=== PATIENT | male | born 1960 | race Caucasian/White ===

== ENCOUNTER → 2021-08-11 08:24 | Outpatient (CLI) | payer OTHER, SELFPAY ==
--- NOTE | ~2021-08-11 | MR_ITS ---
EXAMINATION: MR knee RT wo con DATE: 08/11/2021 09:26 INDICATION: Primary osteoarthritis of the right knee with generalized right knee pain, swelling, limi kassidy range of motion, weakness, locking and popping. TECHNIQUE: Magnetic resonance imaging (MRI) of the right knee was performed without intravenous contr ast. Sequences included coronal PD-weighted FSE, coronal PD-weighted FS FSE, sagittal T2-weighted FS E, sagittal PD-weighted FS FSE and axial PD weighted fat saturated FSE. COMPARISON: None. FINDINGS: Medial compartment: Complex tear of the body and posterior horn of the medial meniscus. The medial meniscus appears small likely due to displacement of a meniscal flap which can be seen extending inferiorly into the medial gutter from the posterior meniscal body. Extensive deep chondral ulceration along the anterior to ce ntral weightbearing medial femoral condyle with minimal underlying cortical irregularity and mild sca ttered subarticular edema. Less severe partial thickness cartilage loss which only smooth chondral rabago rface along the medial tibial plateau. Small region of mild subarticular edema along the anteromedial rim of the medial tibial plateau which could be due to overlying chondromalacia or more likely alter ed stress distribution resulting from the meniscal tear. Lateral compartment: Lateral meniscus is normal. Articular cartilage is normal aside from small region of subtle chondral signal heterogeneity suggesting partial thickness fissuring at the posterior aspect of the lateral ti bial plateau underlying the posterior horn of the lateral meniscus. Patellofemoral compartment: There is extensive patellar chondral ulceration and fissuring most prominent along the apical ridge a nd immediately adjacent medial and lateral facets where it likely reaches full-thickness with underly ing cortical irregularity and mild subarticular edema. Trochlear cartilage is relatively preserved. Ligaments and tendons: Anterior and posterior cruciate ligaments are normal. There is thickening and mild increased intrasub stance signal of the proximal medial collateral ligament without significant surrounding edema consis tent with scarring related to chronic partial tear. The fibular collateral ligament complex is normal . Mild patellar and distal quadriceps tendinopathy without discrete tear. The visualized medial and l ateral hamstring tendons as well as the iliotibial band are normal. Fluid: Small right knee joint effusion. No loose osteochondral bodies identified. Moderate-sized Griffin's cys t which measures 6.6 cm craniocaudally and up to 3.9 x 2.1 cm in maximal transaxial dimensions. There is additional smaller ganglion cysts at the margins of the proximal tibiofibular articulation, the l argest measuring 3.5 similar craniocaudally and measuring up to 9 x 7 mm in maximal transaxial dimens ions. Osseous/other: Aside from the previous noted degenerative subarticular changes there is normal marrow signal through out. No fracture or pathologic marrow replacing process. IMPRESSION: 1. Complex medial meniscal tear including a displaced meniscal flap. 2. Mild tricompartmental osteoarthritis most prominent in the medial patellofemoral compartments wher e there is extensive moderate to high-grade chondromalacia at the patella and weightbearing medial fe moral condyle. 3. Likely chronic partial tear of the medial collateral ligament. 4. Mild patellar and quadriceps tendinopathy. 5. Small right knee joint effusion with moderate to large Griffin's cyst and smaller ganglion cysts at the margins of the proximal tibiofibular articulation. Reviewed, dictated and finalized at location A.
== END ==
PROVIDERS: PCP Internal Medicine
DX: M17.11 Unilateral primary osteoarthritis, right knee (principal); S83.231A Complex tear of medial meniscus, current injury, right knee, initial encounter; M22.41 Chondromalacia patellae, right knee; S83.411A Sprain of medial collateral ligament of right knee, initial encounter; M76.51 Patellar tendinitis, right knee; M25.461 Effusion, right knee; M71.21 Synovial cyst of popliteal space [Baker], right knee
CPT/HCPCS: 73721

== ENCOUNTER 2021-11-27 10:46 | Outpatient (CLI) | payer OTHER, SELFPAY ==
--- NOTE | ~2021-11-27 | US_ITS ---
EXAMINATION: US venous doppler LE EXAM DATE: 11/27/2021 11:24 INDICATION: Right leg pain. TECHNIQUE: Multiple grayscale, color flow and Doppler images of the right lower extremity deep venous system obtained and reviewed. There is no prior right leg study for comparison. FINDINGS: RIGHT SIDE Common femoral: -------- Normal. Profunda femoral: ------- Normal. Femoral: Normal. Popliteal: Thrombosed. Posterior tibial: ---------Thrombosed. Peroneal: Normal. Gastrocnemius: Not visualized. Soleus: Not visualized. Greater saphenous: ----- Normal. Lesser saphenous: ------ Not visualized. IMPRESSION: 1. Positive for right popliteal, posterior tibial DVT. STAT hold and call. I confirmed with Maura that patient is in waiting room. She is notifying order ing doctor of results and patient will be given instructions at that time. Reviewed, dictated and finalized at location A. PER MAKER IMPRESSION: 1. Positive for right popliteal, posterior tibial DVT. STAT hold and call. I confirmed with Maura that patient is in waiting room. She is notifying ordering doctor of results and patient will be given instructi ons at that time.
== END 2021-11-27 10:47 | disposition home or self-care (01) ==
LOC: ANHIMG 10:50
PROVIDERS: PCP Internal Medicine; Visit Provider Nurse Practitioner
DX: I82.431 Acute embolism and thrombosis of right popliteal vein (principal); I82.441 Acute embolism and thrombosis of right tibial vein; R60.9 Edema, unspecified
CPT/HCPCS: 93971

== ENCOUNTER 2022-10-21 00:52 | Day surgery (SDC) | payer OTHER, SELFPAY ==
[2022-10-06 15:06] VITALS: BMI 30.7
--- NOTE | 2022-10-20 15:37 | PM.HPGS ---
History of Present Illness History of Present Illness Consent: Risks, benefits, and alternatives have been discussed and questions answered. Patient agrees to proceed with procedure. Chief complaint: melena Narrative: Alejandro Ramos is a 62 year old male Who was referred for colon cancer screening. His father had colon cancer. His last colonoscopy was 5 years ago. Review of Systems Review of Systems: All systems reviewed & are unremarkable except as noted in HPI and below PMFSH Past Medical History Medical History Anxiety Chicken pox DVT (deep venous thrombosis) Heterozygous factor V Leiden mutation Hyperbilirubinemia Hyperlipidemia Sleep apnea Surgical History Surgical History H/O right knee surgery (~09/04/21) History of hernia repair Family History Family History Father , 08/2018 Diabetes mellitus Mother , 11/2018 Diabetes mellitus Social History Social History Social History: caffeine-coffee/tea 2-3 cups daily Years smoked: 10 Smoking status: Former smoker Tobacco type: cigarettes Smoking end date: 11/29/80 Alcohol intake: current Drinks per week: 5 Alcohol use details: wine, margaritas 1-2 weekly Substance use type: does not use Living arrangements: with family Spiritual care concerns: No Meds Home Medications and Allergies Home Medications Medication Instructions Recorded Confirmed Type multivitamin 1 tablet PO DAILY 12/07/19 10/12/22 History mppsfkyoroe-tvr-pbaemkyms-hrb 1 tablet PO DAILY 06/17/21 10/12/22 History 149-hyalur 500 mg-500 mg-66.7 mg tablet (Txnzvihmesg-Unupfcirxlp-TEA (with antiox)) diclofenac sodium 1 % topical gel 2 g topical QID 10/06/22 10/12/22 History (Voltaren Arthritis Pain) Allergies Allergy/AdvReac Type Severity Reaction Status Date / Time No Known Allergies Allergy Verified 10/21/22 12:02 Exam Const: General: alert Orientation/consciousness: patient oriented x3 Resp: Auscultation: clear to auscultation bilaterally Cardio: Rhythm: regular rhythm GI: GI Palp: Yes Soft to palpation and No Tenderness to palpation present (GI) Neuro: General: patient oriented x3 Assessment and Plan Assessment and plan (1) Colon cancer screening: Code(s): Z12.11 - Encounter for screening for malignant neoplasm of colon Status: Acute Assessment and Plan: Colonoscopy with possible biopsy or polypectomy or cautery or injection of substances.
[2022-10-21 12:04] VITALS: BP 133/86; PULSE 68; RESP 18; TEMP 36.2; O2SAT 99
[2022-10-21] MEDS: LACTATED RINGERS 1,000 ML 150 ML IV CONT (12:15)
--- NOTE | 2022-10-21 12:36 | P.PNAN_ITS ---
Anes - Initial Pre Proc Eval Procedure: Operation Date: 10/21/22 14:00 Proposed Procedures p Colonoscopy - Marcelino Guillaume MD Date/Time: 10/21/22 12:36 Surgeon: Marcelino Guillaume MD Pre Op Diagnosis: melena Patient Data Age: 62 Gender: M Height: 1.8 m Weight: 98 kg Last Vital Signs Temp 36.2 C L 10/21/22 12:04 Pulse 68 10/21/22 12:04 Resp 18 10/21/22 12:04 BP 133/86 10/21/22 12:04 Pulse Ox 99 10/21/22 12:04 O2 Del Method Room Air 10/21/22 12:04 Allergies Allergy/AdvReac Type Severity Reaction Status Date / Time No Known Allergies Allergy Verified 10/21/22 12:02 Home Medications Medication Instructions Recorded Confirmed Type multivitamin 1 tablet PO DAILY 12/07/19 10/12/22 History eocxkykkqpy-jsb-wpsbtlylk-hrb 1 tablet PO DAILY 06/17/21 10/12/22 History 149-hyalur 500 mg-500 mg-66.7 mg tablet (Nbqvwrwoexb-Dqsukejdzqj-KWF (with antiox)) diclofenac sodium 1 % topical gel 2 g topical QID 10/06/22 10/12/22 History (Voltaren Arthritis Pain) Patient hx anesthesia problems: none Family hx anesthesia problems: none Results Review: All pre-operative results and documents have been reviewed as part of the pre- operative evaluation. [facility] Past Medical History Medical History Anxiety Chicken pox DVT (deep venous thrombosis) Heterozygous factor V Leiden mutation Hyperbilirubinemia Hyperlipidemia Sleep apnea Surgical History Surgical History H/O right knee surgery (~09/04/21) History of hernia repair Family History Family History Father , 08/2018 Diabetes mellitus Mother , 11/2018 Diabetes mellitus Social History Social History Social History: caffeine-coffee/tea 2-3 cups daily Years smoked: 10 Smoking status: Former smoker Tobacco type: cigarettes Smoking end date: 11/29/80 Alcohol intake: current Drinks per week: 5 Alcohol use details: wine, margaritas 1-2 weekly Substance use type: does not use Living arrangements: with family Spiritual care concerns: No Anes - Eval Final PreProcedure Day of Procedure 10/21/22 12:36 Patient weight: obese Heart: regular rate and rhythm Lungs: clear to auscultation and normal air movement Airway: Mallampati scale class II Neurological: alert and oriented Last oral intake: >/= 8 hours ASA classification: III Emergent: no Anesthetic plan: proceed Anesthesia type and monitoring: general GIVS Results Review: All pre-operative results and documents have been reviewed as part of the pre- operative evaluation. Informed Consent: The patient's anesthetic plan and its attendant risks and benefits were discussed with the patient/family/POA. Questions were solicited and answers provided to the satisfaction of the patient/family/POA.
[2022-10-21 13:22] VITALS: BP 88/52; PULSE 65; RESP 20; O2SAT 97
[2022-10-21 13:32] VITALS: BP 104/71; PULSE 54; RESP 20; O2SAT 96
[2022-10-21 13:42] VITALS: BP 111/71; PULSE 50; RESP 20; O2SAT 97
== END 2022-10-21 13:54 | disposition home or self-care (01) ==
PROVIDERS: PCP Internal Medicine; Visit Provider Internal Medicine Gastroenterology
PROC: 0DJD8ZZ Inspection of Lower Intestinal Tract, Via Natural or Artificial Opening Endoscopic (ICD-10-PCS; CPT 45378; principal; 2022-10-21 14:00)
DX: Z12.11 Encounter for screening for malignant neoplasm of colon (principal); K57.30 Diverticulosis of large intestine without perforation or abscess without bleeding; D12.8 Benign neoplasm of rectum; K63.5 Polyp of colon; Z80.0 Family history of malignant neoplasm of digestive organs; G47.30 Sleep apnea, unspecified; D68.51 Activated protein C resistance; Z87.891 Personal history of nicotine dependence; E66.9 Obesity, unspecified; Z68.30 Body mass index [BMI] 30.0-30.9, adult
CPT/HCPCS: 45385; 88305; J2704; J7120

== ENCOUNTER 2023-02-05 11:49 | Emergency (ER) | payer OTHER, SELFPAY ==
[2023-02-05] VITALS (19 sets, daily range): BP systolic 126–138; BP diastolic 88–98; PULSE 66–94; RESP 13–23; TEMP 36.4–36.6; O2SAT 92–97
--- NOTE | ~2023-02-05 | US_ITS ---
EXAMINATION: US venous doppler [facility] DATE: 02/05/2023 12:35 INDICATION: Left lower limb pain. TECHNIQUE: Grayscale ultrasound images without and with compression and Doppler ultrasound images of the left lower extremity veins were obtained. COMPARISON: Ultrasound 01/20/2016 FINDINGS: The visualized portions of left common femoral vein, profunda (deep) femoral vein, femoral vein, popl iteal vein, peroneal veins, and greater saphenous vein outflow are patent. There is thrombus in the l eft posterior tibial veins. IMPRESSION: 1. Deep vein thrombosis involving the left posterior tibial veins. I called this result to Dr. Derek humphries. Reviewed, dictated and finalized at location A. R INSPECTOR IMPRESSION: 1. Deep vein thrombosis involving the left posterior tibial veins. I called th is result to Dr. Gill.
--- NOTE | 2023-02-05 13:38 | ED.GENADULT ---
HPI - General Adult General Chief complaint: Extremity Problem,Nontraumatic Stated complaint: left leg pain/past hx dvt Time Seen by Provider: 02/05/23 12:43 History of Present Illness HPI narrative: 63-year-old male presented the emergency department for evaluation of left leg pain. Patient reports he does have a prior history of DVT and has right leg approximately 1-1/2 years ago after surgery. Patient states he did have a recent long plane flight and then on the 6 began developing some posterior right calf pain. Patient denies any significant chest pain or shortness of breath with this. Patient reports he does have prior follow-up with hematology at [facility]. Related Data Home Medications Medication Instructions Recorded Confirmed multivitamin 1 tablet PO DAILY 12/07/19 10/12/22 korwznyqett-mug-qlaikscns-hrb 1 tablet PO DAILY 06/17/21 10/12/22 149-hyalur 500 mg-500 mg-66.7 mg tablet (Rrtruorajbn-Wfvmedzfiif-ZFU (with antiox)) diclofenac sodium 1 % topical gel 2 g topical QID 10/06/22 10/12/22 (Voltaren Arthritis Pain) Allergies Allergy/AdvReac Type Severity Reaction Status Date / Time No Known Allergies Allergy Verified 02/05/23 12:44 Review of Systems Review of Systems: CONSTITUTIONAL: Denies fever, chills, or sweats. EYES: Denies visual changes, redness, or discharge. ENT: Denies rhinorrhea, congestion, sore throat, or otalgia. CARDIOVASCULAR: Denies chest pain, palpitations, or edema. RESPIRATORY: Denies cough or dyspnea. GASTROINTESTINAL: Denies abdominal pain, nausea, vomiting, or diarrhea. GENITOURINARY: Denies dysuria or hematuria. SKIN: Denies rash or itching. MUSCULOSKELETAL: See HPI NEUROLOGIC: Denies headache, numbness, or weakness. [facility] Past Medical History Medical History Anxiety Chicken pox DVT (deep venous thrombosis) Heterozygous factor V Leiden mutation Hyperbilirubinemia Hyperlipidemia Sleep apnea Surgical History Surgical History H/O right knee surgery (~09/04/21) History of hernia repair Family History Family History Father , 08/2018 Diabetes mellitus Mother , 11/2018 Diabetes mellitus Social History Social History Social History: caffeine-coffee/tea 2-3 cups daily Years smoked: 10 Smoking status: Former smoker Tobacco type: cigarettes Smoking end date: 11/29/80 Alcohol intake: current Drinks per week: 5 Alcohol use details: wine, margaritas 1-2 weekly Substance use type: does not use Living arrangements: with family Spiritual care concerns: No Exam Narrative: APPEARANCE: Well appearing, no pain, no distress, well-nourished. HEAD: normocephalic, atraumatic. EYES: PERRLA/EOMI, conjunctivae clear. NOSE: Normal no drainage NECK: Supple. No adenopathy, no masses. RESPIRATORY: Airway patent, respirations nonlabored. Clear to auscultation bilaterally, no rales, rhonchi, wheezing. CARDIOVASCULAR: Regular rate and rhythm without murmurs rubs or gallops. ABDOMINAL: Soft, nontender, nondistended, normal bowel sounds MUSCULOSKELETAL: Moves all extremities. Right calf tenderness to palpation. No significant edema. No erythema. Neurovascular intact. NEURO: Alert. Cranial nerves II through XII intact. Grossly intact SKIN: Warm, dry. Normal Color Course Course Emergency Course: 63-year-old male concern for DVT does have a positive popliteal DVT in the left lower extremity. Baseline labs are being ordered. Patient will be started on Eliquis as he tolerated this previously. Patient reports he does still have some Eliquis at home. Patient was provided a prescription for Eliquis. Patient was also provided with the coupon for Eliquis. Baseline labs show patient is afebrile with no leukocytosis. Patient's hemogl
[2023-02-05 13:50] LABS: Basophils Absolute Auto 0.1 K/mm3 (0.0-0.1); Basophils Percent Auto 0.9 % (0.2-1.2); Eosinophils Absolute Auto 0.1 K/mm3 (0-0.3); Hematocrit 48.3 % (42.0-52.0); Hemoglobin 16.2 g/dL (14.0-18.0); Immature Granulocyte Absolute 0.03 K/mm3 (0.00-0.031); Immature Granulocyte Percent A 0.3 % (0-0.5); Lymphocytes Percent Auto 16.7 % (18.3-44.2); Mean Corpuscular HGB Conc 33.5 g/dl (32-36); Mean Corpuscular Hemoglobin 31.2 pg (26-34); Mean Corpuscular Volume 93.1 fl (80-100); Mean Platelet Volume 9.8 fl (7.4-10.4); Monocytes Absolute Auto 0.8 K/mm3 (0.1-0.6); Monocytes Percent Auto 8.4 % (2.6-8.5); Neutrophils Absolute Auto 6.5 K/mm3 (1.3-6.7); Neutrophils Percent Auto 72.7 % (45.5-73.1); Platelet Count Result 219 k/mm3 (150-375); Red Blood Count 5.19 M/mm3 (4.6-6.20); Red Cell Distribution Width 12.9 % (11.5-14.5)
[2023-02-05 14:00] LABS: Prothrombin Time 12.9 Seconds (11.1-14.7)
[2023-02-05 14:01] LABS: Alanine Aminotransferase 25 U/L (6-50); Albumin Level 4.5 g/dL (3.5-5.1); Alkaline Phosphatase 78 U/L (38-126); Anion Gap 6 mmol/L (8-16); Aspartate Amino Transferase 24 U/L (17-59); Bilirubin,Total 1.3 mg/dL (0.2-1.3); Blood Urea Nitrogen 17 mg/dL (9-20); Calcium 9.2 mg/dL (8.4-10.2); Carbon Dioxide 23 mmol/L (22-30); Chloride 105 mmol/L (98-107); Estimated Glomerular Filt Rate > 60; Glucose 132 mg/dL (65-110); Partial Thromboplastin Time 26.6 SECONDS (22.3-36.8); Sodium 134 mmol/L (137-145)
== END 2023-02-05 15:06 | disposition home or self-care (01) ==
PROVIDERS: Emergency Provider Emergency Medicine; PCP Internal Medicine
DX: I82.432 Acute embolism and thrombosis of left popliteal vein (principal); Z87.891 Personal history of nicotine dependence; F41.9 Anxiety disorder, unspecified; Z86.718 Personal history of other venous thrombosis and embolism; G47.30 Sleep apnea, unspecified
CPT/HCPCS: 36415; 80053; 85025; 85610; 85730; 93971; 99284

== ENCOUNTER 2024-10-28 11:52 | Emergency (ER) | payer OTHER, SELFPAY ==
[2024-10-28 12:14] VITALS: BP 149/88; PULSE 68; RESP 16; TEMP 36.2; O2SAT 98
[2024-10-28 12:23] LABS: EDUAAPPEAR Clear; EDUABILI Negative (Negative); EDUABLOOD 1+ (Negative); EDUACOLOR1 Yellow; EDUAGLUCOSE Negative (Negative); EDUAKETONE Negative (Negative); EDUALEUKO 1+ (Negative); EDUANITRATE Negative (Negative); EDUAPH 5.5; EDUAPROTEIN Negative (Negative); EDUAUROBILI 0.2
--- NOTE | 2024-10-28 13:06 | ED_ITS ---
HPI - Male Genitourinary General Chief complaint: Urogenital-Male Stated complaint: urinary issue Time Seen by Provider: 10/28/24 13:07 Source: patient, RN notes reviewed and old records reviewed Mode of arrival: ambulatory Limitations: no limitations History of Present Illness HPI Narrative: Patient presents with complaints of urinary frequency and burning. He reports that symptoms have been present for 3 days. He has been taking ayph-vpv-cwgvryb medications with moderate relief. He denies any blood in the urine. He reports low-grade fever, mild back pain. Denies any abdominal pain. No nausea or vomiting.. Related Data Home Medications Medication Instructions Recorded Confirmed multivitamin 1 tablet PO DAILY 12/07/19 10/28/24 hvlyndaiffx-byo-ighfmxdab-hrb 1 tablet PO DAILY 06/17/21 10/28/24 149-hyalur 500 mg-500 mg-66.7 mg tablet (Qystotqbtdn-Tyuuotwevkg-OUB (with antiox)) diclofenac sodium 1 % topical gel 2 g topical QID 10/06/22 10/28/24 (Voltaren Arthritis Pain) minoxidil 2 % topical solution 1 ml topical BID 12/02/23 10/28/24 cholecalciferol (vitamin D3) 50 50 mcg PO DAILY 06/12/24 10/28/24 mcg (2,000 unit) tablet Allergies Allergy/AdvReac Type Severity Reaction Status Date / Time No Known Allergies Allergy Verified 06/19/24 10:54 Review of Systems Review of Systems: All systems reviewed & are unremarkable except as noted in HPI and below Constitutional: Constitutional: Reports no additional constitutional complaints ENT: Reports system reviewed and no additional complaints, except as documented Cardiovascular: Cardiovascular: Reports no additional cardiovascular complaints Respiratory: Respiratory: Reports no additional respiratory complaints Gastrointestinal: Gastrointestinal: Reports no additional gastrointestinal c omplaints Genitourinary: Genitourinary: Reports as per HPI and Reports dysuria PMFSH Past Medical History Medical History Acquired hypothyroidism Anticoagulated by anticoagulation treatment Anxiety Chicken pox DVT (deep venous thrombosis) Erectile dysfunction Heterozygous factor V Leiden mutation Hyperbilirubinemia Hyperlipidemia Hyponatremia Sleep apnea Surgical History Surgical History H/O right knee surgery (~09/04/21) History of hernia repair Family History Family History Father , 08/2018 Diabetes mellitus Mother , 11/2018 Diabetes mellitus Social History Social History Social History: caffeine-coffee/tea 2-3 cups daily Years smoked: 10 Smoking status: Former smoker Tobacco type: cigarettes Smoking end date: 11/29/80 Alcohol intake: current Drinks per week: 5 Alcohol use details: wine, margaritas 1-2 weekly Substance use type: does not use Do You Feel Safe in your Home?: Yes Lack of Transportation: No Lack of Food: Never True Current Housing: I Have Housing Concerned About Future Housing: No Difficulty Paying Gas/Electric Bills: No Difficulty Paying for Meds: No Currently Unemployed: No Education: Trade/Vocational Certificate Difficulty w/ Childcare or Family Care: No Living arrangements: with family Spiritual care concerns: No Comments At the time of my signature, I reviewed and agree with the nursing past medical, surgical, social, and family history. There is no relevant family history pertinent to the patient complaint. Exam Const: General: cooperative, no acute distress, alert and awake Orientation/consciousness: oriented to person, oriented to place and oriented to time HENMT: Head: normal to inspection Resp: Effort & Inspection: normal respiratory effort and able to speak in complete sentences Auscultation: clear to auscultation bilaterally, no crackles, no rales, no rhonchi and no wheezes Cardio: Palpation: normal PMI Rate: regular rate Rhythm: regular rhythm Heart sounds: S1 normal heart sound present and S2 normal heart sound present : General: Yes bladder normal to palpation and Yes no CVA tenderness Neuro: General: oriented to person, oriented to place and oriented to time Cranial nerves: Yes CN's II-XII intact bilaterally Psych: Appearance: grossly normal Thought process: Normal thought process present Insight: Good insight present (Psych) Judgement: Good judgement present (Psych) Course Course Level of Care: Express Care Visit Vital Signs Vital signs: Vital Signs Temperature 97.1 F L 10/28/24 12:14 Pulse Rate 68 10/28/24 12:14 Respiratory Rate 16 10/28/24 12:14 Blood Pressure 149/88 H 10/28/24 12:14 Pulse Oximetry 98 10/28/24 12:14 Oxygen Delivery Room Air 10/28/24 12:14 Temperature 97.1 F L 10/28/24 12:14 Pulse Rate 68 10/28/24 12:14 Respiratory Rate 16 10/28/24 12:14 Blood Pressure 149/88 H 10/28/24 12:14 Pulse Oximetry 98 10/28/24 12:14 Oxygen Delivery Room Air 10/28/24 12:14 Reviewed MDM - Male Genitourinary MDM Narrative Medical decision making narrative: Patient with UTI. Nontoxic appearing. Stable for discharge home on p.o. antibiotic therapy. Advised follow with primary care provider. Culture sent Discharge instructions reviewed with patient, as well as provided in writing per nursing staff. The instructions also include specific and strict return/GO TO THE ER as well as f/u information. All questions have been answered, and the patient deny any further questions with discharge and discharge plan. Some parts of this dictation were generated by voice recognition software and may contain typographical and/or grammatical inaccuracies. Differential Diagnosis Differential diagnosis: Likely urinary tract infection, urethritis and epididymitis Medical Records Attestation: I reviewed the patient's medical records. Lab Data Labs: Lab Results 10/28/24 Range/Units 12:16 POC Urine Color Yellow POC Urine Clarity Clear POC Urine pH 5.5 POC Ur Specif [place] 1.010 POC Urine Protein Negative (Negative) POC Ur Glucose (UA) Negative (Negative) POC Urine Ketones Negative (Negative) POC Urine Blood 1+ (Negative) POC Urine Nitrite Negative (Negative) POC Urine Bilirubin Negative (Negative) POC Urine Urobilinogen 0.2 POC U Leukocyte Esteras 1+ (Negative) Discharge Plan Discharge Clinical Impression: Urinary tract infection Qualifiers: Urinary tract infection type: site unspecified Hematuria presence: with hematuria Qualified Code(s): N39.0 - Urinary tract infection, site not specified Patient Disposition: Home, Self-Care Condition: Stable Instructions: Antibiotic Form, Urinary Tract Infection in Men (ED) Additional Instructions: Take medications as prescribed. Follow-up with primary care provider. Emergency department for new or worse symptoms Patient Language: Tamazight Prescriptions: New sulfamethoxazole-trimethoprim [Bactrim DS] 800-160 mg tablet 1 tablet PO Q12H Qty: 14 0RF No Action multivitamin Tablet 1 tablet PO DAILY nbfvwynz-rqp-ktyfi-zkl988-namc [Eduhac-Cmvym-RZG (with antiox)] 500-500-66.7 mg tablet 1 tablet PO DAILY minoxidil 2 % solution 1 ml topical BID cholecalciferol (vitamin D3) 50 mcg (2,000 unit) tablet 50 mcg PO DAILY tadalafil 10 mg tablet 10 - 20 mg PO DAILY PRN (Reason: sexual activity) Qty: 30 1RF Rx Instructions: administer approximately 30min before sexual activity; do not use more than 1 dose per 24hrs diclofenac sodium [Voltaren Arthritis Pain] 1 % Gel 2 g TOPICAL QID levothyroxine 25 mcg tablet 25 mcg PO DAILY Qty: 14 0RF apixaban 2.5 mg tablet 2.5 mg PO BID Qty: 180 1RF (DME) Compression Stockings 30-40 See Rx Instructions .Route .MEDSUPPLY Qty: 2 1RF Rx Instructions: Wear when needed 30/40 Thigh High Office Follow-up/Referrals: Waylon Cee DO [Primary Care Provider] - 1 Week Time of Disposition: 13:19
== END 2024-10-28 13:23 | disposition home or self-care (01) ==
PROVIDERS: Emergency Provider Nurse Practitioner Family; PCP Internal Medicine
DX: N39.0 Urinary tract infection, site not specified (principal); B96.20 Unspecified Escherichia coli [E. coli] as the cause of diseases classified elsewhere; Z87.891 Personal history of nicotine dependence; E03.9 Hypothyroidism, unspecified; E78.5 Hyperlipidemia, unspecified; Z86.718 Personal history of other venous thrombosis and embolism
CPT/HCPCS: 81003; 87077; 87086; 87186; 99213; G0463

== ENCOUNTER 2025-06-05 01:01 | Day surgery (SDC) | payer MEDICARE, SELFPAY ==
[2025-05-21 15:35] VITALS: BMI 30.7
--- NOTE | 2025-05-25 14:27 | PC.NURSE ---
Spoke with patient regarding medication Eliquis. Patient verbalizes understanding that the last dose is to be taken on 06/01/2025 and the Endoscopist will instruct them when to restart after the procedure.
--- OUTSIDE RECORDS SUMMARY | 2025-06-05 01:04 | XMS_ITS | Clinical Summary ---
Author Organization [facility] Care Team Providers Care Sports Trainer Name Role Phone Unavailable Primary Care Provider Unavailabl e Social History Tobacco Use Types Packs/Day Years Used Date Smoking Tobacco: Never Assessed Sex and Gender Information Value Date Recorded Sex Assigned at Not on file Legal Sex Male 7:47 AM SAL[employer] Gender Identity Not on file Sexual Orientation Not on file Plan of Treatment Health Maintenance Due Date Last Done Comments Hepatitis C Virus (HCV) Screening 1960 TdaP Immunization 1960 Colonoscopy 02/05/2005 Colorectal Cancer Screening 02/05/2005 Cologuard 02/05/2010 Immunochemical Fecal Occult Blood 02/05/2010 Pneumococcal Immunization (50+ years) (1 of 1 - PCV) 02/05/2010 PSA Discussion 02/05/2015 Influenza Immunization (#1) 07/30/202405/2021, 08/27/2020, 09/19/2019, Additional history exists SARS-COV-2 Immunization ( season) 2024 09/25/2021, 02/22/2021, 01/30/2021 Respiratory Syncytial Virus (RSV) Immunization (Adult) (1 - 1-dose 75+ series) 02/05/2035 Zoster Immunization Completed 01/02/2021, 0 Hepatitis B Immunization Aged Out No longer eligible based on patient's age to complete this topic Meningococcal Immunization (ACWY) Aged Out No longer eligible based on patient's age to complete this topic Pneumococcal Immunization Combined Aged Out No longer eligible based on patient's age to complete this topic Rotavirus Immunization Aged Out No lo nger eligible based on patient's age to complete this topic
--- OUTSIDE RECORDS SUMMARY | 2025-06-05 01:04 | XMS_ITS | Continuity of Care Document ---
Author Organization [facility] Address [address] [place] [address] Phone Care Team Providers Care Janitor Custodian Name Role Phone Child OD, Dale Unavailable Unavailable Advance Directives Directive Yes / No Effective Date File Name No Information Encounters Encounter Description Practice Location Reason(s) For Visit Diagnoses Date Provider Providers Copied on Encounter [facility], [address], [place], [place], [id number], [place] tel:[phone] [facility] No Information Alon-2 4-200 6 Child OD Dale. [address] , [address], [place], [address], [place]. tel:[phone] Family History Family Member Type Diagnosis Age At Onset No Information Payers Payer name Insurance type Covered republican ID Authoriza tion(s) No Information Social History Type Description Quantity Date Captured Comments Sex Male Smoking Status No Information Chief Complaint And Reason For Visit No Information Reason For Referral Reason For Referral No Information History Of Present Illness Encounter Date Complaint History Of Prese nt Illness No Information Functional Status Date Functional Assessmen t No Information Instructions Date Instruction Additional Infor mation No Information Assessments Type Assessment Date No Information Patient Care Teams Name Effective Dates (start - stop) Status Members No Information
--- OUTSIDE RECORDS SUMMARY | 2025-06-05 01:04 | XMS_ITS | Referral Summary ---
Author Organization [facility] [address] Address [address] [place] [address] Care Team Providers Care Pole Inspector Name Role Phone Waylon Cee DO Primary Care Provider [phone] Allergies No known active allergies Medications apixaban (ELIQUIS) 2.5 mg tablet Take 1 tablet (2.5 mg total) by mouth 2 (two) times a day Active levothyroxine (SYNTHROID) 25 mcg tablet Take 1 tablet (25 mcg total) by mouth daily 4 Active multivitamin tablet Take 1 tablet by mouth daily Active tadalafiL (ADCIRCA) 10 mg tablet Take 1 tablet (10 mg total) by mouth daily as needed for erectile dysfunction 4 Active triamcinolone (KENALOG) 0.1 % ointmentIndicati ons:Eczema, unspecified type Apply topically 2 (two) times a day 80 g 1 4 Active Active Problems Problem Noted Date Diagnosed Date Noise effect on inner ear 07/16/2015 Presbycusis 07/16/2015 Sensorineural hearing loss (SNHL) 07/16/2015 Mixed conductive and sensori neural hearing loss, unilateral with unrestricted hearing on the contralateral side 07/16/2015 Hearing loss 07/15/2015 Social History Tobacco Use Types Packs/Day Years Used Date Smoking Tobacco: Former Personal Safety Answer Date Recorded Getting School Help Needed Not on file 02/11 Sex and Gender Information Value Date Recorded Sex Assigned at Not on file Legal Sex Male 11:33 AM TIN CUTTER Gender Identity Not on file Sexual Orientation Not on file Last Filed Vital Signs Vital Sign Reading Time Taken Comments Blood Pressure 118/84 07/16/2015 1:21 PM CDT Pulse - - Temperature - - Respiratory Rate - - Oxygen Saturation - - Inhaled Oxygen Concentration - - Weight 99.8 kg (220 lb) 07/16/2015 1:21 PM CDT Height 181.6 cm (5' 11.5) 07/16/2015 1:21 PM CD T Body Mass Index 30.26 07/16/2015 1:21 PM CDT Plan of Treatment Not on file Insurance [facility] SIG [id number] Care Teams Pole Inspector Relationship Specialty Start Date End Date Waylon Cee DO PCP - General Internal Medicine 05/02/19
--- OUTSIDE RECORDS SUMMARY | 2025-06-05 01:04 | XMS_ITS | Clinical Summary ---
Author Organization [facility] Address [address] [place] [address] Care Team Providers Care Dusting And Brushing Machine Operator Name Role Phone Waylon Cee DO Primary Care Provider [phone] Source Comments [facility],non-owned Affiliates and Associated Physician Practices is amultiple site organization consisting of ambulatory clinics and hospital sitesin [place], [place], [place] and [place]. This disclosure is being madepursuant to the Care Everywhere program and may not contain all information available regarding this patient. Last updated 18.[facility] Allergies No known active allergies Medications * Be aware that medications may not be up to date on this document. Alwaysverify current medications with the patient. ASPIRIN 81 PO Active Multiple Vitamin (MULTI-VITAMIN PO) Active Elastic Bandages & Supports (JOBST FOR MEN 30-40MMHG LG) MISC Use 1 Box once daily BELOW THE KNEE, BILATERAL 1 Each 2 2 Active Elastic Bandages & Supports (T.E.D. THIGH LENGTH/L-REGULA R) MISCIndications :VTE (venous thromboembolism ) Use 2 Each as directed 2 Each 2 Active GLUCOSAMINE-CHO NDROITIN PO Active apixaban (Eliquis) 5 MG tabletIndicatio ns:VTE (venous thromboembolism ) Take 0.5 (one-half) tablet by mouth 2 times daily 120 tablet 2 3 Active Immunizations Immunization Administration Dates Next Due INFLUENZA VACCINE, QUADR. (F LUZONE; FLULAVAL; FLUARIX; AFLURIA QUADRIVALENT; 6MO+), 0.5 ML (IIV4) 08/27/2020,09/19/2019,08/31/2017 iNFLUENZA VACCINE, RECOM-HAMPTON, QUADR. (FLUBLOCK QUADRIVALENT; 18Y+) (RIV4) 09/23/2018 Family History Medical History Relation Name Comments Cancer - Bladder Father Diabetes - Type 2 Father Pulmonary Embolism Father CAD (Coronary Artery Disease) Mother Diabetes - Type 2 Mother Relation Name Status Comments Father Mother Alive Social History Tobacco Use Types Packs/Day Years Used Date Smoking Tobacco: Former Cigarettes Q uit: 03/07/1985 Smokeless Tobacco: Never Tobacco Cessation:Counseling Given: Not Answered Sex and Gender Information Value Date Recorded Sex Assigned at Not on file Legal Sex Male 3:41 PM SUPERVISOR BOTTLE MACHINES Gender Identity Not on file Sexual Orientation Not on file Last Filed Vital Signs Vital Sign Reading Time Taken Comments Blood Pressure 136/89 04/14/2023 11:08 AM CDT Pulse 80 04/14/2023 11:08 AM CDT Temperature 36.2 C (97.1 F) 03/19/2022 1:13 PM CDT Respiratory Rate 23 04/14/2023 11:0 8 AM CDT Oxygen Saturation 97% 04/14/2023 11: 08 AM CDT Inhaled Oxygen Concentration - - Weight 105.1 kg (231 lb 12.8 oz) 2022 11:08 AM CDT Height 180.3 cm (5' 11) 02/17/2023 8:49 AM CDT Body Mass Index 32.33 02/17/2023 8:49 AM CDT Plan of Treatment Health Maintenance Due Date Last Done Comments COLOGUARD (AGES 45-75) - COLON CA SCREENING 1960 COLON MONITORING 1960 COLONOSCOPY - COLON CA SCREENING 1960 CT COLONOGRAPHY - COLON CA SCREENING 1960 Colorectal Cancer Screening 1960 FIT - COLON CA SCREENING 1960 FLEX SIG - COLON CA SCREENING 1960 LIPID TESTING 1960 HIV SCREENING 02/05/1975 HEPATITIS C SCREENING 02/01/1978 DTAP/TDAP/TD VACCINES (1 - Tdap) 02/05/1979 PNEUMOCOCCAL VACCINE 50+ (1 of 1 - PCV) 02/05/2010 ZOSTER VACCINE (1 of 2) 02/05/2010 SCREENING FOR DIABETES 03/19/2022 COVID-19 VACCINE ( season) 2024 08/08/2022, 09/25/2021, 02/22/2021, Additional history exists DEPRESSION SCREENING 11/29/2024 AAA SCREENING 02/05/2025 INFLUENZA VACCINE (Season Ended) 2025 09/14/2022, 09/04/2021, 08/27/2020, Additional history exists Respiratory Syncytial Virus (RSV) Vaccine Pt: or over 60 yrs (1 - 1-dose 75+ series) 02/05/2035 HEPATITIS B VACCINE Aged Out No longe r eligible based on patient's age to complete this topic HIB VACCINE Aged Out No longer eligi ble based on patient's age to complete this topic HPV VACCINE Aged Out No longer eligi ble based on patient's age to complete this topic MENINGOCOCCAL (Group B) VACCINE SHARED DECISION-MAKING Aged Out No longer eligible based on patient's age to complete this topic MENINGOCOCCAL GROUPS A/C/Y/W VACCINE Aged Out No longer eligible based on patient's age to complete this topic Insurance AETNA AETNA AETNA Care Teams Dusting And Brushing Machine Operator Relationship Specialty Start Date End Date Waylon Cee DO PCP - General Internal Medicine 08/31/17
--- OUTSIDE RECORDS SUMMARY | 2025-06-05 01:04 | XMS_ITS | Clinical Summary ---
Author Organization [facility] [address] Address [address] [place] [address] Care Team Providers Care Model Photographers' Name Role Phone Waylon Cee DO Primary Care Provider [phone] Allergies No known active allergies Medications apixaban [...] the contralateral side 07/16/2015 Hearing loss 07/15/2015 Family History Medical History Relation Name Comments Brain cancer Brother Family history of malignant neoplasm of brain - (Added by TW Conv) Diabetes Father Family history of diabetes mellitus - (Added by TW Conv) Pancreatitis Father Family history of pancreatitis - (Added by TW Conv) Diabetes Mother Family history of diabetes mellitus - (Added by TW Conv) Liver cancer Mother Family history of liver cancer - (Added by TW Conv) Relation Name Status Comments Brother Father Mother Social History Tobacco Use Types Packs/Day Years Used Date Smoking Tobacco: Former Personal Safety Answer Date Recorded Getting School Help Needed Not on file 02/11 Sex and Gender Information Value Date Recorded Sex Assigned at Not on file Legal Sex Male 11:33 AM STAFF COUNSEL Gender Identity Not on file Sexual Orientation Not on file Obstetrics History Last Filed Vital Signs Vital Sign Reading [...] 07/16/2015 1:21 PM CDT Plan of Treatment Health Maintenance Due Date Last Done Comments Colon Cancer Screening-Colonoscopy 1960 Depression Screening 1960 Fall Risk Assessment 1960 Hepatitis C Screening 1960 Prostate Cancer Screening-PSA 1960 DTaP/Tdap/Td Vaccine (1 - Tdap) 02/05/1971 Hepatitis B Screening 02/05/1978 Pneumococcal vaccine 65+ (1 of 1 - PCV) 02/05/2010 Covid-19 Vaccine (2023-2 5 season) 2024 09/09/2023, 08/08/2022, 09/25/2021, Additional history exists Abdominal Aortic Aneurysm (A AA) Screen 02/05/2025 Well Visit 65+ 02/05/2025 Influenza Vaccine (Season Ended) 2025 09/09/2023, 09/14/2022, 09/04/2021, Additional history exists Zoster Vaccine Completed 01/02/2021, 10/31/2020 Insurance AETNA SIG [id number] [facility] Care Teams Model Photographers' Relationship Specialty Start Date End Date Waylon Cee DO PCP - General Internal Medicine 05/02/19
--- OUTSIDE RECORDS SUMMARY | 2025-06-05 01:04 | XMS_ITS | Clinical Summary ---
Author Organization [facility] Address [address] [place] [address] Care Team Providers Care Linux Engineer Name Role Phone Unavailable Primary Care Provider Unavailabl e Social History Tobacco Use Types Packs/Day Years Used Date Smoking Tobacco: Never Assessed Comments Unknown Sex and Gender Information Value Date Recorded Sex Assigned at Not on file Legal Sex Female 5:54 PM CDT Gender Identity Not on file Sexual Orientation Not on file Last Filed Vital Signs Vital Sign Reading Time Taken Comments Blood Pressure 134/70 03/21/2013 8:32 AM CDT Pulse 63 03/21/2013 8:32 AM CDT Temperature - - Respiratory Rate - - Oxygen Saturation - - Inhaled Oxygen Concentration - - Weight - - Height - - Body Mass Index - - Plan of Treatment Health Maintenance Due Date Last Done Comments Colorectal Cancer Screening Colonoscopy (10 Years) 1960 Hepatitis C 02/05/1978 DTaP, Tdap and Td Vaccines ( 1 - Tdap) 02/05/1979 Mammogram Screening 2000 Pneumococcal Vaccine: 50+ Ye ars (1 of 1 - PCV) 02/05/2010 Zoster Vaccines (1 of 2) 02/05/2010 COVID-19 Vaccine (2023-2 5 season) 2024 Dexa Scan (General) 02/05/2025 RSV Immunization or 60+ Years (1 - 1-dose 75+ series) 02/05/2035 Meningococcal B Vaccine Aged Out No l onger eligible based on patient's age to complete this topic Meningococcal Vaccine Aged Out No kashif elvin eligible based on patient's age to complete this topic RSV Immunizations Under 20 Months Aged Out No longer eligible based on patient's age to complete this topic
--- OUTSIDE RECORDS SUMMARY | 2025-06-05 01:05 | XMS_ITS | Clinical Summary ---
Author Organization [facility] Address [address] [place] [address] Phone Care Team Providers Care Art Education Professor Name Role Phone Waylon Cee DO Primary Care Provider Allergies No known active allergies Medications multivitamin (DAILY-DARRELL) tablet Take 1 Tablet by mouth daily. Active glucosam-chondro -herb 149-hyal (GLUCOS CHOND CPLX ADVANCED ORAL) Take by mouth. Active levothyroxine 25 mcg tablet Take 1 Tablet by mouth daily. 02/01/2024 Active apixaban (Eliquis) 2.5 mg tablet Take 2.5 mg by mouth 2 times daily. 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 S/P Right Knee Arthroscopy 09/11/21 04/27/2024 Factor V Leiden 04/27/2024 H/O Left Knee Arthroscopy 201004/27/2024 Obesity 04/27/2024 H/O DVT 09/18/21 04/27/2024 Left Knee Osteoarthritis 01/14/2023 Osteoarthritis of both knees 01/14/2023 Encounters Date Type Department Care Team Description 05/31/2025 3:45 PM CDT Office Visit [facility] Orthopedic Surgery at the [facility] [address] [place] [address] Marlon Cummings MD Left Knee Osteoarthritis (Primary Dx); H/O Left Knee Arthroscopy 2010; Right Knee Osteoarthritis; Factor V Leiden; H/O DVT 09/18/21 (Eliquis); Right Knee Chondromalacia Patella; S/P Right Knee Arthroscopy 09/11/21; Bilateral Knee Osteoarthritis 05/29/2025 External Device Data STL ABSTRACTION Provider, Abstract 05/22/2025 External Device Data STL ABSTRACTION Provider, Abstract 05/15/2025 External Device Data STL ABSTRACTION Provider, Abstract 04/19/2025 External Device Data STL ABSTRACTION Provider, Abstract 04/19/2025 External Device Data STL ABSTRACTION Provider, Abstract 04/04/2025 11:00 AM CDT Office Visit [facility] Orthopedic Surgery at the [facility] [address] [place] [address] Linda Rhoades PA-C Arthritis of left knee (Primary Dx); Primary osteoarthritis of right knee 03/23/2025 10:15 AM CDT Office Visit [facility] Orthopedic Surgery at the [facility] [address] [place] [address] Marlon Cummings MD Left Knee Osteoarthritis (Primary Dx); H/O Left Knee Arthroscopy 2010; Factor V Leiden; H/O DVT 09/18/21 (Eliquis); Right Knee Osteoarthritis; Right Knee Chondromalacia Patella; S/P Right Knee Arthroscopy 09/11/21; Bilateral Knee Osteoarthritis from Last 3 Months Social History Tobacco Use Types Packs/Day Years Used Date Smoking Tobacco: Former Cigarettes Q uit: 11/29/1984 Smokeless Tobacco: Never Tobacco Cessation:Counseling Given: Not Answered Alcohol Use Standard Drinks/Week Comments Yes 0 (1 standard drink = 0.6 oz pur e alcohol) occasionally Sex and Gender Information Value Date Recorded Sex Assigned at Not on file Legal Sex Male 6:02 AM PEOPLESOFT FSCM DEVELOPER Gender Identity Not on file Sexual Orientation Not on file Last Filed Vital Signs Vital Sign Reading Time Taken Comments Blood Pressure 139/91 09/18/2021 7:45 PM CDT Pulse 64 09/18/2021 7:45 PM CDT Temperature 36.7 C (98 F) 09/18/2021 5:02 PM CDT Respiratory Rate 16 09/18/2021 7:45 PM CDT Oxygen Saturation 94% 09/18/2021 7:45 PM CDT Inhaled Oxygen Concentration - - Weight 102.1 kg (225 lb) 05/31/2025 3:55 PM CDT Height 180.3 cm (5' 11) 05/31/2025 3:55 PM CDT Body Mass Index 31.38 05/31/2025 3:55 PM CDT Plan of Treatment Health Maintenance Due Date Last Done Comments Pre-Diabetes and Diabetes Screening 1960 DTAP/TDAP/TD VACCINES (1 - Tdap) 02/05/1979 COLORECTAL SCREENING 02/05/2005 Colorectal Cancer Screening 02/05/2005 FIT-DNA Q 3 years 02/05/2005 FIT/FOBT Q 1 year 02/05/2005 Flex Sig/CT Colonography Q 5 years 02/05/2005 PNEUMOCOCCAL VACCINE 50+ YEA RS (1 of 1 - PCV) 02/05/2010 ZOSTER VACCINE (1 of 2) 02/05/2010 Abdominal Aortic Aneurysm (A AA) Screening 02/05/2025 INFLUENZA VACCINE (#1) 2025 , 08/27/2020, 09/19/2019, Additional history exists RSV VACCINE (60+ or ) (1 - 1-dose 75+ series) 02/05/2035 Procedures Procedure Name Priority Date/Time Associated Diagnosis Comments LA ARTHROCENTESIS ASPIR&/INJ MAJOR JT/BURSA W/O US Routine 04/04/2025 11:00 AM CDT Arthritis of left knee LA ARTHROCENTESIS ASPIR&/INJ MAJOR JT/BURSA W/O US Routine 04/04/2025 11:00 AM CDT Primary osteoarthritis of right knee from Last 3 Months Results * LA ARTHROCENTESIS ASPIR&/INJ MAJOR JT/BURSA W/O US (04/04/2025 11:00 AM CDT) Narrative Linda Rhoades PA-C - 04/04/2025 11:00 AM CDT Linda Rhoades PA-C 04/04/2025 11:21 AM Large Joint Drain/Inject Date/Time: 04/04/2025 11:00 AM Authorized by: Linda Rhoades PA-C Performed by: Linda Rhoades PA-C Consent given by: patient Site marked: site marked Timeout: Immediately prior to procedure a time out was called to verify the correct patient, procedure, equipment, desktop support consultant and site/side marked as required Supporting Documentation Indications: pain Sedation Patient sedated?: patient not sedated Procedure Details Location: knee - L knee Preparation: Patient was prepped and draped in the usual sterile fashion Needle size: 22 G Methylprednisolone amount: 40 mg Bupivacaine 0.50% amount: 1 mL Lidocaine 1% amount: 1 mL Patient tolerance: patient tolerated the procedure well with no immediate complications us Linda Rhoades PA-C PROCEDURE/MINOR SURGICA L ORDERABLES Final Result * LA ARTHROCENTESIS ASPIR&/INJ MAJOR JT/BURSA W/O US (04/04/2025 11:00 AM CDT) Narrative Linda Rhoades PA-C - 04/04/2025 11:00 AM CDT Linda Rhoades PA-C 04/04/2025 11:21 AM Large Joint Drain/Inject Date/Time: 04/04/2025 11:00 AM Authorized by: Linda Rhoades PA-C Performed by: Linda Rhoades PA-C Consent given by: patient Site marked: site marked Timeout: Immediately prior to procedure a time out was called to verify the correct patient, procedure, equipment, desktop support consultant and site/side marked as required Supporting Documentation Indications: pain Sedation Patient sedated?: patient not sedated Procedure Details Location: knee - R knee Preparation: Patient was prepped and draped in the usual sterile fashion Needle size: 22 G Methylprednisolone amount: 40 mg Bupivacaine 0.50% amount: 1 mL Lidocaine 1% amount: 1 mL Patient tolerance: patient tolerated the procedure well with no immediate complications Linda Rhoades PA-C PROCEDURE/MINOR SURGICA L ORDERABLES Final Result from Last 3 Months Insurance [employer] Commercial Advance Directives For more information, please contact: [phone] * Full Code (Latest Code Status on File) Date Activated Date Inactivated Comments 05/18/2011 12:38 PM 05/18/2011 8:57 PM * Full Code Date Activated Date Inactivated Comments 05/18/2011 12:14 PM 05/18/2011 12:38 PM * Full Code Date Activated Date Inactivated Comments 05/18/2011 10:32 AM 05/18/2011 12:14 PM Care Teams Art Education Professor Relationship Specialty Start Date End Date Waylon Cee DO [address] [phone] PCP - General Internal Medicine 08/28/21
[2025-06-05 10:23] VITALS: BP 131/82; PULSE 79; RESP 20; TEMP 36.6; O2SAT 96; BMI 30.8
[2025-06-05] MEDS: LACTATED RINGERS 1,000 ML 150 ML IV CONT (10:31)
--- NOTE | 2025-06-05 10:32 | WPDANESEPPF ---
Anes - Initial Pre Proc Eval Procedure: Operation Date: 06/05/25 11:30 Proposed Procedures p Colonoscopy - Stephan Alvarado MD Date/Time: 06/05/25 10:32 Surgeon: Stephan Alvarado MD Pre Op Diagnosis: Melena Patient Data Age: 65 Gender: M Height: 1.8 m Weight: 100.3 kg Last Vital Signs Temp 98 F 06/05/25 10:23 Pulse 79 06/05/25 10:23 Resp 20 06/05/25 10:23 BP 131/82 06/05/25 10:23 Pulse Ox 96 06/05/25 10:23 O2 Del Method Room Air 06/05/25 10:23 Allergies Allergy/AdvReac Type Severity Reaction Status Date / Time No Known Allergies Allergy Verified 06/05/25 10:22 Home Medications ?Medication ?Instructions ?Recorded ?Confirmed ?Type multivitamin 1 tablet PO DAILY 12/07/19 06/05/25 History npbrhqjzpfq-bvw-vqnnumzar-hrb 1 tablet PO BID 06/17/21 06/05/25 History 149-hyalur 500 mg-500 mg-66.7 mg tablet (Zemjyolmzox-Ulezbdxefoz-SLY (with antiox)) diclofenac sodium 1 % topical gel 2 g topical QID 10/06/22 06/05/25 History (Voltaren Arthritis Pain) minoxidil 2 % topical solution 1 ml topical BID 12/02/23 06/05/25 History cholecalciferol (vitamin D3) 50 50 mcg PO DAILY 06/12/24 06/05/25 History mcg (2,000 unit) tablet tadalafil 10 mg tablet 10 - 20 mg (1 - 2 x 10 mg) PO 06/12/24 05/21/25 Rx DAILY PRN sexual activity #30 tabs Compression Stockings #2 ea 07/20/24 04/06/25 Rx apixaban 2.5 mg tablet 2.5 mg PO BID #180 tabs 12/07/24 06/05/25 Rx levothyroxine 25 mcg tablet 25 mcg PO DAILY #90 tabs 02/07/25 06/05/25 Rx methocarbamol 750 mg tablet 750 mg PO TID #30 tabs 04/06/25 05/21/25 Rx Patient hx anesthesia problems: none Family hx anesthesia problems: none Results Review: All pre-operative results and documents have been reviewed as part of the pre-operative evaluation. [facility] Past Medical History Medical History Erectile dysfunction Acquired hypothyroidism Hyponatremia Anticoagulated by anticoagulation treatment Heterozygous factor V Leiden mutation Hyperlipidemia Hyperbilirubinemia DVT (deep venous thrombosis) Anxiety Chicken pox Sleep apnea Surgical History Surgical History H/O right knee surgery (~09/04/21) History of hernia repair Family History Family History Father , 08/2018 Diabetes mellitus Mother , 11/2018 Diabetes mellitus Social History Social History Social History: caffeine-coffee/tea 2-3 cups daily Years smoked: 9 Smoking status: Former smoker Tobacco type: cigarettes Smoking end date: 11/29/80 Alcohol intake: current Drinks per week: 3 Alcohol use details: DRINKS Substance use: never Substance use type: does not use Do You Feel Safe in your Home?: Yes Lack of Transportation: No Lack of Food: Never True Current Housing: I Have Housing Concerned About Future Housing: No Difficulty Paying Gas/Electric Bills: No Difficulty Paying for Meds: No Currently Unemployed: No Education: Trade/Vocational Certificate Difficulty w/ Childcare or Family Care: No Living arrangements: with family Spiritual care concerns: No Anes - Eval Final PreProcedure Day of Procedure 06/05/25 10:32 Patient weight: obese Lungs: normal air movement Airway: Mallampati scale class II Neurological: alert and oriented Last oral intake: >/= 8 hours ASA classification: III Emergent: no Anesthetic plan: proceed Anesthesia type and monitoring: general GIVS and standard monitoring Results Review: All pre-operative results and documents have been reviewed as part of the pre-operative evaluation. Central sleep apnea, hx of factor 5 leiden def s/p DVT after long flight/sx, AC off now for 3 days. Informed Consent: The patient's anesthetic plan and its attendant risks and benefits were discussed with the patient/family/POA. Questions were solicited and answers provided to the satisfaction of the patient/family/POA.
--- NOTE | 2025-06-05 10:35 | PM.IMHP ---
H&P: HPI History of Present Illness Date/Time: 06/05/25 10:35 Chief Complaint: History of colon polyps Narrative: The patient has a history of colonic polyps, the last colonoscopy was in 2021, finding a tubular adenoma. The patient's father had colorectal cancer at age 65. Review of Systems Review of Systems: All systems reviewed & are unremarkable except as noted in HPI and below PMFSH Past Medical History Medical History Erectile dysfunction Acquired hypothyroidism Hyponatremia Anticoagulated by anticoagulation treatment Heterozygous factor V Leiden mutation Hyperlipidemia Hyperbilirubinemia DVT (deep venous thrombosis) Anxiety Chicken pox Sleep apnea Surgical History Surgical History H/O right knee surgery (~09/04/21) History of hernia repair Family History Family History Father , 08/2018 Diabetes mellitus Mother , 11/2018 Diabetes mellitus Social History Social History Social History: caffeine-coffee/tea 2-3 cups daily Years smoked: 9 Smoking status: Former smoker Tobacco type: cigarettes Smoking end date: 11/29/80 Alcohol intake: current Drinks per week: 3 Alcohol use details: DRINKS Substance use: never Substance use type: does not use Do You Feel Safe in your Home?: Yes Lack of Transportation: No Lack of Food: Never True Current Housing: I Have Housing Concerned About Future Housing: No Difficulty Paying Gas/Electric Bills: No Difficulty Paying for Meds: No Currently Unemployed: No Education: Trade/Vocational Certificate Difficulty w/ Childcare or Family Care: No Living arrangements: with family Spiritual care concerns: No Meds Home Medications and Allergies Home Medications ?Medication ?Instructions ?Recorded ?Confirmed ?Type multivitamin 1 tablet PO DAILY 12/07/19 06/05/25 History [id number]-[id number]-[id number]-hrb 1 tablet PO BID 06/17/21 06/05/25 History 149-hyalur 500 mg-500 mg-66.7 mg tablet (Jzxhspbemms-Fiklmspecgc-KEC (with antiox)) diclofenac sodium 1 % topical gel 2 g topical QID 10/06/22 06/05/25 History (Voltaren Arthritis Pain) minoxidil 2 % topical solution 1 ml topical BID 12/02/23 06/05/25 History cholecalciferol (vitamin D3) 50 50 mcg PO DAILY 06/12/24 06/05/25 History mcg (2,000 unit) tablet tadalafil 10 mg tablet 10 - 20 mg (1 - 2 x 10 mg) PO 06/12/24 05/21/25 Rx DAILY PRN sexual activity #30 tabs Compression Stockings #2 ea 07/20/24 04/06/25 Rx apixaban 2.5 mg tablet 2.5 mg PO BID #180 tabs 12/07/24 06/05/25 Rx levothyroxine 25 mcg tablet 25 mcg PO DAILY #90 tabs 02/07/25 06/05/25 Rx methocarbamol 750 mg tablet 750 mg PO TID #30 tabs 04/06/25 05/21/25 Rx Allergies Allergy/AdvReac Type Severity Reaction Status Date / Time No Known Allergies Allergy Verified 06/05/25 10:22 Vital Signs Vital Signs - 24 hr 06/05/25 10:23 Temperature 98 F Pulse Rate 79 Respiratory Rate 20 Blood Pressure 131/82 Pulse Oximetry 96 Oxygen Delivery Room Air Exam Const: General: cooperative and healthy appearing Resp: Effort & Inspection: normal respiratory effort and able to speak in complete sentences Auscultation: clear to auscultation bilaterally Cardio: Rate: regular rate Rhythm: regular rhythm GI: Inspection: normal to inspection GI Palp: No No hepatosplenomegaly present Auscultation: normal bowel sounds Rectal Exam: deferred Skin: General skin exam: normal color Psych: Appearance: grossly normal Mental Status: mental status grossly normal Assessment and Plan Assessment and plan (1) History of colonic polyps: Code(s): Z86.0100 - Personal history of colon polyps, unspecified Status: Acute Assessment and Plan: The patient is deemed a good candidate for the procedure. Consent signed. Will proceed.
[2025-06-05 11:05] VITALS: BP 112/71; PULSE 64; RESP 20; O2SAT 96
[2025-06-05 11:15] VITALS: BP 110/71; PULSE 73; RESP 23; O2SAT 94
[2025-06-05 11:25] VITALS: BP 106/76; PULSE 65; RESP 18; O2SAT 98
== END 2025-06-05 11:35 | disposition home or self-care (01) ==
PROVIDERS: PCP Internal Medicine; Referring Provider Student in an Organized Health Care Education/Training Program; Visit Provider Internal Medicine Gastroenterology
PROC: 0DJD8ZZ Inspection of Lower Intestinal Tract, Via Natural or Artificial Opening Endoscopic (ICD-10-PCS; CPT 45378; principal; 2025-06-05 11:30)
DX: Z12.11 Encounter for screening for malignant neoplasm of colon (principal); K64.8 Other hemorrhoids; K57.30 Diverticulosis of large intestine without perforation or abscess without bleeding; N52.9 Male erectile dysfunction, unspecified; E03.9 Hypothyroidism, unspecified; E87.1 Hypo-osmolality and hyponatremia; D68.51 Activated protein C resistance; E78.2 Mixed hyperlipidemia; E80.6 Other disorders of bilirubin metabolism; F41.9 Anxiety disorder, unspecified; G47.30 Sleep apnea, unspecified; E66.9 Obesity, unspecified; Z68.30 Body mass index [BMI] 30.0-30.9, adult; Z79.01 Long term (current) use of anticoagulants; Z98.890 Other specified postprocedural states; Z86.0100 Personal history of colon polyps, unspecified; Z87.891 Personal history of nicotine dependence; Z86.718 Personal history of other venous thrombosis and embolism; Z80.0 Family history of malignant neoplasm of digestive organs
CPT/HCPCS: G0105; J2003; J2704; J7120